=== PATIENT | female | born 1955 | race Caucasian/White ===

== ENCOUNTER → 2016-11-28 | Outpatient (REF) | payer OTHER ==
[~2016-11-28] MED LIST: CENTTAB PO; FLUT1SPR2; FURO20TA2 PO; LEVO25TA5 PO; POTA10TA8 PO; PRIL20CA9 PO; ZYRT10TA2 PO
== END ==
LOC: M SFHCCLAY 07:44
PROVIDERS: ATTEND Nurse Practitioner Family
DX: E78.00 Pure hypercholesterolemia, unspecified (principal)